=== PATIENT | male | born 1970 | race African-American/Black ===

== ENCOUNTER 2017-10-10 09:11 | Observation (INO) | payer SELFPAY ==
[2017-10-10 09:50] LABS: #Basophils 0.1 thou/uL (0.0-0.2); #Eosinphils 0.1 thou/uL (0.0-0.7); #Lymphocytes 1.6 thou/uL (1.20-3.40); #Monocytes 0.5 thou/uL (0.11-0.59); #Neutrophils 4.2 thou/uL (1.40-6.50); %Basophils 1.4 % (0.0-1.0); %Eosinophils 1.3 % (0.0-10.0); %Lymphocytes 24.9 % (21.0-51.0); %Monocytes 7.6 % (0.0-10.0); Hematocrit 50.8 % (42.0-52.0); Mean Platelet Volume 8.2 fL (7.4-10.4); Red Blood Cell (RBC) Count 5.53 mill/uL (4.70-6.10); White Blood Cell (WBC) Count 6.4 thou/uL (4.8-10.8)
[2017-10-10 10:09] LABS: ALT (SGPT) 43 U/L (8-55); AST (SGOT) 23 U/L (5-34); Alkaline Phosphatase 79 U/L (40-150); Anion Gap 15 mmol/L (10-20); BUN (Urea Nitrogen) 16 mg/dL (8.9-20.6); Bilirubin, Total 0.3 mg/dL (0.2-1.2); CK (CPK) 203 U/L (30-200); Calc. Creatinine Clearance 0 mL/min (70-130); Calcium 9.6 mg/dL (7.8-10.44); Carbon Dioxide 23 mmol/L (22-29); Chloride 104 mmol/L (98-107); Estimated GFR-MDRD 69; Globulin 3.8 g/dL (2.4-3.5); Lipase 12 U/L (8-78); Protein, Total 8.2 g/dL (6.0-8.3)
[2017-10-10 10:10] LABS: Troponin I Less than 0.010 ng/mL (< 0.028)
--- NOTE | 2017-10-10 10:19 | RAD ---
PORTABLE AP CHEST: Date: 10-10-17 History: Chest tightness for one week with transient chest tightness multiple times a day. Comparison: None. FINDINGS: Cardiac silhouette is magnified by projection. Pulmonary vasculature is within normal limits. Lungs a re clear. Osseous structures are intact. IMPRESSION: No acute cardiopulmonary process. POS: [facility]
[2017-10-10 11:56] VITALS: BMI 36.6
[2017-10-10] MEDS ORDERED: Nitroglycerin 0.4 MG TAB (25 Tab Bottle) PO PRN (12:06)
[2017-10-10 12:45] LABS: Hemoglobin A1c 5.5 % (4.0-6.0)
[2017-10-10 12:47] LABS: Magnesium 2.3 mg/dL (1.6-2.6); Phosphorus 3.4 mg/dL (2.3-4.7)
[2017-10-10 13:09] LABS: Troponin I Less than 0.010 ng/mL (< 0.028)
[2017-10-10 17:37] LABS: Troponin I Less than 0.010 ng/mL (< 0.028)
[2017-10-10] MEDS ORDERED: Atorvastatin Calcium 40 MG TAB PO SCH (21:00)
--- NOTE | 2017-10-10 23:07 | HP-2 ---
CODE STATUS: FULL. PRIMARY CARE PHYSICIAN: Tim kennedy, none. ADMITTING ATTENDING: Dr. Radhames Marlow. ADMITTING RESIDENT: Dr. Rojas Polk. HISTORIAN: Patient. CHIEF COMPLAINT: Chest pain. HISTORY OF PRESENT ILLNESS: This patient is a 47-year-old -[place] male with no past medical history presenting with intermittent chest pain for the past week. The patient describes a substernal pressure like/heart racing episode that occurred for a few seconds at a time and usually subsides on its own. The patient denies any radiation of his pain, but does state that it is sometimes associated with headache. The patient also denies shortness of breath , diaphoresis, nausea, vomiting, and diarrhea. The patient said this has not happened before last week. The patient has tried no medications to alleviate any of the pain. The patient also denies any family history of coronary artery disease. The patient states he notes that he should likely be eating better, looked up some of his symptoms online and was concerned that he has diabetes. The patient has not seen a doctor in years. ER: In the emergency department, the patient received the following: Aspirin 324 mg p.o. PAST MEDICAL HISTORY: None reported. PAST SURGICAL HISTORY: None. ALLERGIES: No known drug allergies. MEDICATIONS: None. FAMILY HISTORY: Patient endorses a family history of hypertension, diabetes mellitus. SOCIAL HISTORY: Patient has never used tobacco products. Admits to social alcohol use and denies any illicit drug use. The patient denies any recent sick contacts, has accompanied by significant other. REVIEW OF SYSTEMS: General: Patient denies fevers, chills, weight, appetite, sleep changes, night sweats, or fatigue. Eyes: Patient denies vision changes or eye pain. ENT: Patient denies rhinorrhea, or sore throat. Respiratory: Patient denies cough, congestion, shortness breath or exercise intolerance. Cardiovascular: Patient endorses chest pain, palpitations. Patient denies edema, PND, orthopnea. Gastrointestinal: Patient denies nausea, vomiting, diarrhea, constipation, abdominal pain. Genitourinary: Patient denies dysuria, polyuria. Skin: Patient denies rashes , lesions. Musculoskeletal: Patient denies pain, arthritis or arthralgias. Neurologic: Patient endorses tingling sensation in fingers and feet. Patient denies weakness or numbness or seizure. Psychiatric: Patient denies anxiety or depression. PHYSICAL EXAMINATION: VITAL SIGNS: Blood pressure 137/72, pulse 73, respirations 14, T-max 98.4. Pulse ox 95% on room air. Current weight 109 kilograms. GENERAL: Alert and oriented x4, no acute distress. Well-developed, appropriately interactive gentleman. HEENT: PERRLA, EOMI. Conjunctivae within normal limits. ENT: TMs pearly hernandez without bulging. Nasal mucosa within normal limits. Oropharynx within normal limits. NECK: Supple, no lymphadenopathy. No bruits. SKIN: Intact appreciated bilaterally. CARDIOVASCULAR: Regular rate and rhythm, no murmurs, no gallops. No tenderness to palpation of the chest wall. Radial and pedal pulses felt 2+ bilaterally. RESPIRATORY: Normal effort, no retractions. Clear to auscultation bilaterally. ABDOMEN: Soft, nontender to palpation. Bowel sounds active. No masses, no distention. SKIN: Warm and dry. No cyanosis. No lesions. EXTREMITIES: No cyanosis, no edema. MUSCULOSKELETAL: Structure and tone within normal. Strength 5/5 in all extremities. Full range of motion. NEUROLOGIC: No focal deficits. Continue nerves II-XII grossly intact. GCS of 15. PSYCHIATRIC: Appropriate mood and affect. LABORATORY DATA: 1. Hematology: WBC 6.4, hemoglobin 17, hematocrit 50, platelets 207, MCV 91% neutrophils 64. 2. Chemistry: Sodium 137, potassium 4.6, chloride 104, carbon dioxide 23, BUN 16, creatinine 1.14, GFR of 69, glucose 103, calcium 9.6, total protein 8.2, albumin 4.4, AST 23, ALT 43, alkaline phosphatase 79, total bilirubin 0.3. CK 203, CK-MB 1.1. Troponin less than 0.010, lipase 12. 3. EKG shows a new right bundle branch block, but normal sinus rhythm with a rate of 75. 4. Chest x-ray shows no acute findings. ASSESSMENT AND PLAN: A 47-year-old -[place] male with: 1. Atypical chest pain, possibly secondary to arrhythmia -Admit the patient to observation. We will continue telemetry monitoring. We will continue to trend his troponins. Due to the fact his EKG showed a new right bundle branch block with some T-wave inversions as well, we will proceed with a nuclear stress test. The patient's heart score is between 2 and 3, however, these new symptoms and EKG findings warrant further workup at this time. We will also check a magnesium, phosphorus, TSH, hemoglobin A1c, fasting lipid panel. Nitroglycerin is available p.r.n. for any reoccurrence of chest pain. 2. Acute kidney injury. The patient has no known history of chronic kidney disease; however, his GFR is slightly diminished. We will continue to trend and monitor. 3. Prophylaxis. Patient will be placed on Lovenox for VTE prophylaxis with no GI prophylaxis indicated at this time. DISPOSITION: Patient admitted under observation status for the anticipated length of stay less than 2 midnights, pending clinical course. Symptomatic medications will be provided. History and physical as well as management discussed with Dr. Radhames Marlow who agrees with the above assessment and plan. FATEMEH
--- NOTE | 2017-10-11 06:11 | PDOC.FM ---
- Subjective Subjective: Pt seen at bedside in NAD. PEE overnight. Tolerated first portion of stress test well yesterday, no complications. Tolerating PO. No recurrence of CP. Pt denies FLETCHER, CP, SOB, abd pain, NVD. - Objective MAR Reviewed: Yes Vital Signs & Weight: Vital Signs (12 hours) Temp Pulse Resp BP BP Pulse Ox 10/11/17 04:15 65 18 115/65 10/10/17 23:45 98.1 F 62 16 115/74 92 L 10/10/17 19:35 98.0 F 82 16 125/79 95 10/10/17 19:28 98.4 F 75 20 Weight Weight 112.661 kg I&O: 10/09/17 10/10/17 10/11/17 06:59 06:59 06:59 Intake Total 300 Balance 300 Result Diagrams: 10/10/17 09:41 10/10/17 09:41 <Rojas Polk - Last Filed: 10/11/17 08:47> - Objective Vital Signs & Weight: Vital Signs (12 hours) Temp Pulse Resp BP BP Pulse Ox 10/11/17 08:20 98.1 F 65 20 10/11/17 08:00 98.1 F 65 20 125/67 96 10/11/17 04:15 65 18 115/65 10/10/17 23:45 98.1 F 62 16 115/74 92 L Weight Weight 112.661 kg I&O: 10/10/17 10/11/17 10/12/17 06:59 06:59 06:59 Intake Total 300 Balance 300 Result Diagrams: 10/10/17 09:41 10/10/17 09:41 <Gilberto Kohc - Last Filed: 10/11/17 10:43> Phys Exam - Physical Examination Constitutional: NAD HEENT: moist MMs, sclera anicteric Neck: full ROM Respiratory: no wheezing, clear to auscultation bilateral Cardiovascular: RRR, no significant murmur Gastrointestinal: soft, non-tender, positive bowel sounds Musculoskeletal: no edema, pulses present Neurological: moves all 4 limbs Psychiatric: normal affect, A&O x 3 Skin: cap refill <2 seconds <Rojas Polk - Last Filed: 10/11/17 08:47> Dx/Plan (1) Atypical chest pain Code(s): R07.89 - OTHER CHEST PAIN Status: Acute Plan: -pt with no reported PMH p/w atypical chest pain. due to HEART score of 3, stress test ordered -risk factor workup including Mg, Ph, TSH, A1c and FLP -all within normal limits except slightly elevated LDL -ASCVD risk of 5.1% warrants moderate intensity statin, pt started on atorvastatin -pt completed NM portion of stress yesterday, with resting portion to be completed this AM -continue to monitor - Plan Plan: dispo: Pt stable and doing very well. Pending completion of stress test this AM and normal result, likely discharge. <Rojas Polk - Last Filed: 10/11/17 08:47> Attending Addendum - Attending Addendum I personally evaluated the patient and discussed the management with Dr. Polk. I agree with and repeated the History, Examination, Assessment and Plan documented above with any addition or exceptions noted below. Occasional PVCs, ~1/hr on tele. Suspect he is feeling these. Await stress and plan on discharge with outpatient follow up. <Gilberto Koch - Last Filed: 10/11/17 10:43>
[2017-10-11] MEDS ORDERED: Enoxaparin Sodium 40 MG/0.4 ML SYRINGE SC SCH (09:00)
[2017-10-11] MEDS ORDERED: Aspirin 325 MG TAB PO SCH (09:00)
[2017-10-11 10:58] VITALS: BP 145/91; TEMP 97.5
--- NOTE | 2017-10-11 11:03 | NM ---
NUCLEAR MEDICINE CARDIAC MYOCARDIAL PERFUSION SPECT EJECTION FRACTION STUDY WALL MOTION CINE: HISTORY: 47-year-old male with acute chest pain. TECHNIQUE: Number of days: 2 Rest study: Tc99m sestamibi (Cardiolite) dose: 33.0 mCi Exercise stress: treadmill. Stress study: Tc99m sestamibi (Cardiolite) dose: 33.0 mCi FINDINGS: CARDIAC (MYOCARDIAL PERFUSION) SPECT There are no reversible myocardial perfusion defects. EJECTION FRACTION STUDY EF = 59% WALL MOTION CINE Normal. IMPRESSION: No evidence of reversible ischemia. JASPREET Mora POS: [facility]
--- NOTE | 2017-10-11 11:33 | DIS-2 ---
DATE OF ADMISSION: 10/10/2017 DATE OF DISCHARGE: 10/11/2017 RESIDENT: Rojas Polk M.D. ADMITTING ATTENDING: Radhames Marlow M.D. DISCHARGE ATTENDING: Gilberto Koch M.D. CONSULTS: None. PROCEDURES: 1. Chest x-ray performed on 10/10/2017 showed no acute cardiopulmonary process. 2. Nuclear stress test performed on 10/10/2017 showed no evidence of reversible ischemia. PRIMARY DIAGNOSIS: Atypical chest pain, likely secondary to infrequent premature ventricular contractions. DISCHARGE MEDICATIONS: Atorvastatin 40 mg p.o. at bedtime. HISTORY OF PRESENT ILLNESS AND HOSPITAL COURSE: The patient is a very pleasant 47-year-old -Portuguese male who initially presented with complaints of intermittent chest pain. The decision was made to have the patient undergo a stress test due to the findings of a right bundle branch block on EKG. The patient was placed on telemetry and has his cardiac enzymes trended and found to be negative x3. The patient denied any further recurrence of his chest pain , but did note that he would occasionally feel a "flutter." After review of telemetry monitoring, it was deemed that the patient was likely experiencing PVCs about 1-2 every hour. The patient's laboratory workup came back within normal limits including TSH, magnesium, phosphorus, complete metabolic panel and hemoglobin A1c. The patient did have a fasting lipid panel performed, which showed a slightly elevated LDL at 156, total cholesterol 228, placing the patient's ASCVD risk at 5.1%, warranting use of moderate statin. The patient's hospital course was otherwise uncomplicated. DISPOSITION: Stable. DISCHARGE INSTRUCTIONS: 1. Location: Home. 2. Diet: Heart healthy diet. 3. Activity: As tolerated. 4. Followup: The patient was instructed to follow up with a primary care physician at the [facility]. [facility] CENTERLeslee
--- NOTE | 2017-11-03 10:03 | STRESS ---
Acquisition Time: 2017-10-10 14:53:11 Total Exercise Time: 00:09:00 Test Indications: CHEST PAIN Medications: Protocol: CARMEN Max HR: 155 BPM 88% of Pred: 175 BPM Max BP: 146/090 mmHG Max Work Load: 10.4 METS THE PATIENT EXERCISED FOR 9:00 ON A CARMEN PROTOCOL. PATIENT HEART RATE AT 153 BPM. TARGET HEART RATE OF 149 BPM. HE DID NOT DEVELOP CHEST PAIN. THERE WAS NO SIGNIFICANT ST DEPRESSION WITH STRESS. NEGATIVE EXERCISE TREADMILL TEST. AWAIT NUCLEAR IMAGES FOR DEFINITIVE DIAGNOSIS Confirmed by DIGNA PEREZ ([id number]), film editor supervisor EILEEN BEASLEY ([id number]) on 11/03/2017 10:02:19 AM Referred By: Yaya OMALLEY Confirmed By:DIGNA PEREZ
== END 2017-10-11 12:03 | disposition home or self-care (01) ==
LOC: ERS 09:11 → 2SW 10:41
PROVIDERS: ADMIT Family Medicine; ATTEND Family Medicine
DX: R07.89 Other chest pain (principal); I49.3 Ventricular premature depolarization; N17.9 Acute kidney failure, unspecified; Z79.899 Other long term (current) drug therapy; Z82.49 Family history of ischemic heart disease and other diseases of the circulatory system
CPT/HCPCS: 36415; 71010; 78452; 80053; 80061; 82553; 83036; 83690; 83735; 84100; 84443; 84484; 85025; 93005; 93010; 93017; 94760; 96372; A9500; G0378; J1650